=== PATIENT | male | born 1955 | race Caucasian/White ===

== ENCOUNTER 2017-05-19 01:50 | Inpatient (IN) | payer OTHER ==
[~2017-05-19] VITALS: Ht 172.7 cm; Wt 95.3 kg
[2017-05-19 01:54] VITALS: BP 163/118
--- NOTE | 2017-05-19 01:59 | NUR ---
PT AMBULATED TO BED 11
--- NOTE | 2017-05-19 02:05 | NUR ---
62/M CAME IN WITH , C/O 11/03 EPIGASTRIC PAIN, NONRADIATING, STARTED X4 HOURS AGO AT 2330. PT REPORTS NAUSEA, SOB. PT DENIES FEVER, VOMITING, DIARRHEA. PT REPORTS TAKING 2 TUMS WITHOUT RELIEF. PT REPORTS EATING "FRIED CHICKEN AND POTATOES" AND "SMOKING POT" LAST NIGHT 1999. PT DENIES ALCOHOL, SMOKING. DENIES HX. NKA. BP 174/106 AND 184/[address] TATUM MADE AWARE.
[2017-05-19] MEDS ORDERED: DICYCLOMINE HCL LIQUID 20 MG, ALUMINUM HYD/MAG/SIMETHICONE 30 ML, LIDOCAINE VISCOUS 2% ... PO ONE ×3 (02:20)
[2017-05-19] MEDS ORDERED: MORPHINE SULFATE 4 MG/ML SYR IVP ONE ×2 (02:20→04:30)
[2017-05-19] MEDS ORDERED: ONDANSETRON 4 MG/2 ML VIAL IVP ONE (02:20)
[2017-05-19] MEDS ORDERED: DICYCLOMINE HCL LIQUID 10 MG/5 ML UDC ONE (02:33)
[2017-05-19] MEDS ORDERED: LIDOCAINE VISCOUS 2% 20 ML UDC ONE (02:33)
[2017-05-19] MEDS ORDERED: ALUMINUM HYD/MAG/SIMETHICONE 30 ML UDC ONE (02:56)
--- NOTE | 2017-05-19 03:45 | NUR ---
Patient appears to be resting comfortably in bed. Vital Signs within normal limits. Respirations even and unlabored.
[2017-05-19 04:44] LABS: BASOPHILS # (AUTO) 0.2 K/uL (0.00-0.22); BASOPHILS % (AUTO) 1.8 % (0.0-2.0); EOSINOPHILS # (AUTO) 0.1 K/uL (0-0.4); EOSINOPHILS % (AUTO) 0.5 % (0.0-4.0); HEMATOCRIT 44.8 % (36-52); HEMOGLOBIN 15.3 g/dL (12.0-18.0); LYMPHOCYTES # (AUTO) 1.5 K/uL (2.0-11.5); LYMPHOCYTES % (AUTO) 13.1 % (20.5-51.1); MEAN CORPUSCULAR HEMOGLOBIN 33 pg (27-31); MEAN CORPUSCULAR HGB CONC 34 g/dL (33-37); MEAN CORPUSCULAR VOLUME 95.9 fL (80-94); MONOCYTES # (AUTO) 0.8 K/uL (0.8-1.0); MONOCYTES % (AUTO) 7.4 % (1.7-9.3); NEUTROPHILS # (AUTO) 8.8 K/uL (1.8-7.7); NEUTROPHILS % (AUTO) 77.2 % (42.2-75.2); PLATELET COUNT (AUTO) 177 K/uL (140-450); RED BLOOD CELL COUNT(AUTO) 4.67 MIL/uL (4.20-6.10); RED CELL DISTRIBUTION WIDTH 12.8 % (11.6-13.7); WHITE BLOOD COUNT (AUTO) 11.4 K/uL (4.8-10.8)
--- NOTE | 2017-05-19 04:48 | NUR ---
CLASS A LINEMAN TAKING PT TO CT VIA WHEELCHAIR
--- NOTE | 2017-05-19 05:03 | NUR ---
PT RETURN FROM CT
[2017-05-19] MEDS ORDERED: NACL 0.9% 1,000 ML IV ONE (05:45)
--- NOTE | 2017-05-19 06:08 | NUR ---
PT RESTING COMFORTABLY IN BED, TOLERABLE PAIN AT THIS TIME. ALL NEEDS MET. RR EVEN AND UNLABORED.
[2017-05-19] MEDS: NACL 0.9% 1,000 ML IV SCH ×4 (06:19→20:03)
[2017-05-19] MEDS ORDERED: ACETAMINOPHEN 325 MG TAB PO PRN (06:20)
[2017-05-19] MEDS ORDERED: HYDROmorphone PFS 2 MG/ML SYR IVP SCH (06:20)
--- NOTE | 2017-05-19 06:45 | NUR ---
Patient will be admitted to care of [facility]. Admited to TELE. Will go to room 105A. Belongings list completed. Report to AGUSTINA NOLAN AT BEDSIDE
--- NOTE | 2017-05-19 06:45 | NUR ---
RECEIVED PT FROM ER PER FARHANA WITH CC OF EPIGASTRIC PAIN, AMBULATED TO BED WITH STEADY GAIT, PT AAOX4, ORIENTED TO CALL LIGHT AND ROOM, VITAL SIGNS TAKEN, BP SLIGHTLY ELEVATED, TOLERABLE PAIN AT THIS TIME, IVF INFUSING WELL, INSTRUCTED NPO STATUS, BED IN LOW POSITION AND SIDE RAILS UP, CALL LIGHT WITHIN REACH.
--- NOTE | 2017-05-19 07:18 | NUR ---
PT AWAKE, NO DISTRESS NOTED, REPORT GIVEN TO RN KYLER FOR CONTINUITY OF CARE.
--- NOTE | 2017-05-19 07:19 | NUR ---
RECEIVED REPORT FROM CHIPPING MACHINE OPERATOR NURSE, OVIDIO, AT BEDSIDE FOR CONTINUITY OF CARE. PT AAOX4, VITAL SIGNS WNL WITH ELEVATED BP. PATIENT STATES PAIN 9/10 ABDOMINAL PAIN D/T DX OF ACUTE PANCREATITIS. WILL MEDICATE. IV SITE PATENT, ASYMPTOMATIC, AND INTACT, IVF INFUSING WELL. INSTRUCTED NPO STATUS, UPDATED BOARD, VERBALIZED PLAN OF CARE TO PATIENT, PATIENT VERBALIZED UNDERSTANDING. SAFETY PRECAUTION IN PLACE, BED IN LOW POSITION AND SIDE RAILS UP, CALL LIGHT WITHIN REACH. WILL CONTINUE TO MONITOR PATIENT.
[2017-05-19 08:20] VITALS: BP 167/97
--- NOTE | 2017-05-19 08:37 | NUR ---
ADMINISTERED DILAUDID PRN IVP FOR 9/10 ABDOMINAL PAIN. TOLERATED IT WELL. PATIENT REFUSED COLACE STATING THAT HE HAD BM LAST NIGHT. PATIENT RESTING IN BED, REQUESTED EAR PLUGS, WILL SEARCH FOR SOME AND UPDATE PATIENT. SAFETY PRECAUTION IN PLACE, CALL LIGHT WITHIN REACH, WILL CONTINUE TO MONITOR PATIENT.
[2017-05-19 08:46] LABS: APPEARANCE,URINE CLEAR (CLEAR); BILIRUBIN,URINE NEGATIVE (NEGATIVE); BLOOD, URINE NEGATIVE (NEGATIVE); COLOR,URINE YELLOW (YELLOW); LEUKOCYTE ESTERASE ,URINE NEGATIVE (NEGATIVE); NITRITE, URINE NEGATIVE (NEGATIVE); UGLUCOSE 2+ (NEGATIVE)
[2017-05-19] MEDS ORDERED: DOCUSATE SODIUM 100 MG GELCAP PO SCH (09:00)
[2017-05-19] MEDS ORDERED: DOCUSATE 100 MG/10 ML UDC GT SCH (09:00)
[2017-05-19 09:57] LABS: ANION GAP 17.2 (8-16); CARBON DIOXIDE 21.7 mmol/L (21-32); POTASSIUM 3.9 mmol/L (3.5-5.1)
[2017-05-19 09:58] LABS: CREATININE 0.9 mg/dL (0.7-1.3)
[2017-05-19 09:59] LABS: TOTAL BILIRUBIN 0.4 mg/dL (0.0-1.0)
[2017-05-19 10:00] LABS: ALBUMIN 3.5 g/dL (3.4-5.0)
--- NOTE | 2017-05-19 10:58 | NUR ---
PATIENT HAS BEEN SCREENED AND CATEGORIZED MODERATE NUTRITION RISK. PATIENT WILL BE SEEN WITHIN 3-5 DAYS OF ADMISSION. 05/21/17 - 05/23/[address]
[2017-05-19] MEDS: HYDROmorphone PFS 2 MG/ML SYR IVP PRN ×3 (11:47→19:59)
[2017-05-19 12:00] VITALS: BP 173/97
--- NOTE | 2017-05-19 12:47 | NUR ---
DR. HATCH IN TO SPEAK TO THE PATIENT'S , PER THE 'S REQUEST. VITAL SIGNS WNL WITH ELEVATED BP OF 173/[address] HATCH INFORMED. NO NEW ORDERS. PATIENT CURRENTLY RESTING IN BED, STATES THAT PAIN IS "TOLERABLE", BUT REQUESTS TO HAVE IV ON L AC REMOVED AND NEW IV INSERTED. SAFETY PRECAUTION IN PLACE, CALL LIGHT WITHIN REACH, WILL CONTINUE TO MONITOR PATIENT.
--- NOTE | 2017-05-19 13:45 | NUR ---
PATIENT C/O PAIN AT IV SITE, REQUESTED REMOVAL OF IT. NEW IV INSERTED, 2 ATTEMPTS MADE, PATIENT TOLERATED IT WELL. NEW IV ON L FA 22G, PATENT, ASYMPTOMATIC, AND INTACT. OLD IV AT L AC REMOVED, IV CATHETER INTACT, MINIMAL BLOOD NOTED. NEW DISCHARGE ORDER FROM DR. HATCH, PATIENT WILL BE TRANSFERRED TO [place]. CALLED PATIENT'S , MARA, AT [phone], TO INFORM HER OF PATIENT'S PENDING TRANSFER TO [place] PER THEIR INSURANCE REQUEST. WILL AWAIT FOR NEWS FROM STOCK CLERK ABOUT TIME OF TRANSPORT AND MODE OF TRANSPORTATION. PATIENT RESTING IN BED, NO SIGNS OF DISTRESS OR SOB NOTED. SAFETY PRECAUTION IN PLACE, CALL LIGHT WITHIN REACH, WILL CONTINUE TO MONITOR PATIENT.
--- NOTE | 2017-05-19 13:52 | NUR ---
CM NOTE PER LAWRENCE HERNANDEZ FOR [facility]. CTR, PATIENT IS OUT OF NETWORK AND WILL NEED TO BE TRANSFERRED TO [facility]. FAXED CLINICAL INFO TO [facility] (FAX# [phone] / C: [phone]) & [facility] (FAX# [phone], C: [phone])
[2017-05-19] MEDS ORDERED: ONDA4SOL2 PO (13:55)
[2017-05-19] MEDS ORDERED: DIL2I IVP (13:55)
[2017-05-19] MEDS ORDERED: DOCU-299 PO (13:56)
[2017-05-19 16:00] VITALS: BP 162/103
[2017-05-19 16:04] LABS: BENZODIAZEPINE, URINE NEGATIVE ng/mL (NEG <=200); COCAINE, URINE NEGATIVE ng/mL (NEG <=300)
[2017-05-19 16:05] LABS: BARBITURATE, URINE NEGATIVE ng/ml (NEG <=200); CANNABINOID, URINE POSITIVE ng/mL (NEG <=50); OPIATE, URINE NEGATIVE ng/mL (NEG <=2000); PHENCYCLIDINE SCREEN,URINE NEGATIVE ng/mL (NEG <=25)
--- NOTE | 2017-05-19 16:46 | NUR ---
PATIENT C/O 11/03 ABD PAIN D/T ACUTE PANCREATITIS. DILAUDID PRN ADMINISTERED. PATIENT TOLERATED IT WELL. UPDATED PATIENT ON PLAN OF CARE. SPOKE TO EQUIPMENT PROCESSOR NOBLE ABOUT UPDATES ABOUT PATIENT'S PENDING TRANSFER. ALSO CALLED PATIENT'S , MARA, AT [phone], TO INFORM HER OF UPDATE ABOUT TRANSFER BEING LATE TONIGHT OR EARLY TOMORROW MORNING PER NOBLE. PATIENT NOW RESTING IN BED, NO SIGNS OF DISTRESS OR SOB NOTED. SAFETY PRECAUTION IN PLACE, CALL LIGHT WITHIN REACH, WILL CONTINUE TO MONITOR PATIENT.
--- NOTE | 2017-05-19 17:16 | NUR ---
CM NOTE PENDING TRANSFER TO [facility]. AUTH FOR [facility]: #[id number]
--- NOTE | 2017-05-19 19:22 | NUR ---
PATIENT REPORT GIVEN TO PLASMA PROCESSING TECHNICIAN NURSE AT BEDSIDE FOR CONTINUITY OF CARE. PATIENT IN STABLE CONDITION.
--- NOTE | 2017-05-19 19:23 | NUR ---
RECEIVED REPORT FROM DAY SHIFT, PT IS A/OX4 ON ROOM AIR. PT HAS 20G IV TO LEFT FOREARM. PT WALKS WITH STEADY GAIT AND HIS SKIN IS INTACT. UPDATED BOARD. DISCUSSED PLAN OF CARE WITH PT, PT VERBALIZED UNDERSTANDING. VITAL SIGNS WITHIN NORMAL LIMITS. PT IN STABLE CONDITION, NO SIGNS OF DISTRESS NOTED. BED IN LOWEST POSITION, CALL LIGHT WITHIN REACH. WILL CONTINUE TO MONITOR.
--- NOTE | 2017-05-19 19:59 | NUR ---
MEDICATED WITH DILAUDID FOR C/O 09/02 ABDOMINAL PAIN. PT TOLERATED MEDICATION WELL.
[2017-05-19 20:00] VITALS: BP 168/97
--- NOTE | 2017-05-19 20:56 | NUR ---
NEHEMIAS FROM [facility] CALLED AND SAID THEY HAVE BED FOR PT.UNIT 8300.TELE THAT HAVE TO CALL FOR REPORT IS [phone].SHE SAID WHEN PT ARRIVED HERE WE WILL ASSIGN THE BED FOR PT.NOTIFY NURSE ALICE RN TO CALL REPORT.ALSO NEHEMIAS SAID TRANSFER PT AFTER 10PM.NEHEMIAS TEL.# [phone] OPTION 2 AND THEN OPTION 3.ACCEPTING [address] DR.TIMOTHY MUNSON.
--- NOTE | 2017-05-19 21:00 | NUR ---
BED WAS FOUND FOR PT AT [facility].
[2017-05-19 21:11] LABS: CHOL/HDL RATIO 3.8 (1-4.5); FREE T4 (FREE THYROXINE) 3.8 ng/dL (0.76-1.46); THYROID STIMULATING HORMONE 0.94 uIU/mL (0.34-3.74)
--- NOTE | 2017-05-19 21:28 | NUR ---
TRIED CALLING [facility] TO GIVE REPORT, THEY SAID TO CALL BACK AFTER 10PM.
--- NOTE | 2017-05-19 22:23 | NUR ---
CALLED UNIT 8300 AT [facility] AND GAVE REPORT ON PT TO POP. POP SAID TO TRANSFER PT WITH IV HE HAS. TOLD HIM WE ARE EXPECTING [facility] AROUND 2300 AND GAVE HIM OUR CONTACT NUMBER.
--- NOTE | 2017-05-19 22:40 | NUR ---
GAVE PT DISCHARGE INSTRUCTIONS, TOLD HIM WHERE AND WHEN HE WAS GOING. PT GOT ALL HIS QUESTIONS ANSWERED AND SAID NOT TO CALL HIS TO LET HER KNOW BECAUSE SHE WAS AT WORK AND SHE ALREADY KNEW. PT SIGNED ALL PAPERWORK AND VERBALIZED UNDERSTANDING.
--- NOTE | 2017-05-19 23:20 | NUR ---
PT LEFT UNIT VIA GURNEY WITH [facility]. PT TOOK ALL BELONGINGS WITH HIM. IV WAS DISCONNECTED AND LEFT ON HIM TO USE AT [facility] REQUESTED, GOOD FLUSH AND BLOOD RETURN. TELE MONITOR WAS DISCONNECTED, AND GOWN WAS CHANGED TO AN ORANGE GOWN. PT LEFT IN STABLE CONDITION.
== END 2017-05-19 23:20 | disposition short-term general hospital (02) | DRG 440 ==
LOC: MED 01:50 → MTU 06:30
PROVIDERS: ADMIT Family Medicine Sports Medicine; ATTEND Family Medicine Sports Medicine
DX: K85.90 Acute pancreatitis without necrosis or infection, unspecified (principal); E66.9 Obesity, unspecified; F12.90 Cannabis use, unspecified, uncomplicated; I10 Essential (primary) hypertension; N20.0 Calculus of kidney; Z68.31 Body mass index [BMI] 31.0-31.9, adult
CPT/HCPCS: 36415; 71045; 80053; 80305; 81003; 82150; 83036; 83605; 83615; 83690; 83880; 84439; 84443; 84479; 84484; 85025; 85730; 87081; 93005; 96361; 96374; 96376; 99285; J1170; J2270; J2405; J7030; Q0092